=== PATIENT | female | born 1980 | race Caucasian/White ===

== ENCOUNTER 2016-11-28 15:23 | Emergency (ER) | payer SELFPAY ==
[2016-11-28 15:49] VITALS: BP 150/85
--- NOTE | 2016-11-28 16:38 | UC ---
Respiratory Complaint HPI - HPI Summary HPI Summary: Starting 10/20/16 pt had 3-4 days of fever, aches, malaise, cough, and no appetite. Reports slow improvement over 1-2 weeks, then had a few days of feeling mostly better except for laryngitis. Pt had about 1 week of feeling totally normal before now developing nasal congestion, cough, fatigue, and aches. Pt is worried about pneumonia because coworker had similar symptoms. - History of Current Complaint Chief Complaint: UCRespiratory Stated Complaint: COUGH Time Seen by Provider: 11/28/16 16:25 Hx Obtained From: Patient Hx Last Menstrual Period: 11/04/16 ?: Yes Onset/Duration: Gradual Onset, Lasting Weeks Severity Initially: Moderate Severity Currently: Mild Character: Cough: Productive Aggravating Factors: Deep Breaths, Recumbent Position Alleviating Factors: Upright Position Associated Signs And Symptoms: Positive: Wheezing, URI, Nasal Congestion - Allergies/Home Medications Allergies/Adverse Reactions: Allergies Allergy/AdvReac Type Severity Reaction Status Date / Time Latex Allergy Severe Rash Verified 11/28/16 15:49 Oxycodone Allergy Severe Headache Verified 11/28/16 15:49 PMH/Surg Hx/FS Hx/Imm Hx Endocrine History Of: Denies: Diabetes, Thyroid Disease, Hyperthyroidism, Hypothyroidism Cardiovascular History Of: Denies: Cardiac Disorders, Hypertension, Congestive Heart Failure Respiratory History Of: Reports: Asthma GI/ History Of: Denies: Renal Disease Neurological History Of: Denies: TIA, Seizures Psychological History Of: Denies: Anxiety, Depression - Surgical History Surgical History: Yes Surgery Procedure, Year, and Place: R and L carpal tunnel - Family History Known Family History: Negative: Blood Disorder - Social History Occupation: Employed Full-time Lives: With Family Alcohol Use: Occasionally Substance Use Type: None Smoking Status (MU): Never Smoked Tobacco Review of Systems Constitutional: Fatigue Skin: Negative Eyes: Negative ENT: Nasal Discharge Respiratory: Cough Cardiovascular: Negative Gastrointestinal: Negative Genitourinary: Negative Motor: Negative Neurovascular: Negative Musculoskeletal: Negative Neurological: Negative Psychological: Negative All Other Systems Reviewed And Are Negative: Yes Physical Exam Triage Information Reviewed: Yes Appearance: No Pain Distress, Obese Vital Signs: Initial Vital Signs Temp 99.8 F 11/28/16 15:46 Pulse 91 11/28/16 15:46 Resp 20 11/28/16 15:46 BP 150/85 11/28/16 15:46 Pulse Ox 99 11/28/16 15:46 Vital Signs Reviewed: Yes Eye Exam: Normal Eyes: Positive: Conjunctiva Clear ENT: Positive: Hearing grossly normal, Pharynx normal, Nasal congestion, Nasal drainage, TMs normal Dental Exam: Normal Neck exam: Normal Neck: Positive: Supple, Nontender, No Lymphadenopathy Respiratory Exam: Normal Respiratory: Positive: Chest non-tender, Lungs clear, Normal breath sounds, No respiratory distress, No accessory muscle use Cardiovascular Exam: Normal Cardiovascular: Positive: RRR, No Murmur Musculoskeletal Exam: Normal Neurological Exam: Normal Psychological Exam: Normal Skin Exam: Normal Diagnostic Evaluation - Laboratory O2 Sat by Pulse Oximetry: 99 Respiratory Course/Dx - Differential Dx/Diagnosis Provider Diagnoses: URI, likely viral Discharge - Discharge Plan Condition: Stable Disposition: HOME Prescriptions: Albuterol HFA INHALER* [Ventolin HFA Inhaler*] 1 - 2 puff INH Q4H PRN #1 mdi PRN Reason: wheeze, cough Benzonatate CAP* [Tessalon CAP*] 100 mg PO TID PRN #30 cap PRN Reason: Cough Patient Education Materials: Upper Respiratory Infection (ED) Forms: *Work Release Referrals: Rick Avila MD [Medical Doctor] - Additional Instructions: As we discussed, I believe this is a new, common respiratory virus and unrelated to the illness you had in Sep/Oct. So it will likely be a 10-14 day process of gradually getting over nasal congestion, fatigue, and cough. At any point if you develop fever over 100F, increasing trouble breathing, or sudden pain anywhere, please come back right away for a recheck.
--- NOTE | 2016-11-28 16:55 | RAD ---
INDICATION: Cough COMPARISON: None TECHNIQUE: PA and lateral dual-energy views were obtained. FINDINGS: Bones/Soft Tissues: There are no acute bony findings. Cardiomediastinal: The cardiomediastinal silhouette is normal. Lungs: There are no infiltrates. Pleura: There are no pleural effusions. Other: None IMPRESSION: NEGATIVE EXAMINATION.
== END 2016-11-28 17:13 | disposition home or self-care (01) ==
LOC: UCEAST 15:23
DX: J06.9 Acute upper respiratory infection, unspecified (principal); Z88.5 Allergy status to narcotic agent; E66.9 Obesity, unspecified
CPT/HCPCS: 71020; 99212; G0463